=== PATIENT | female | born 1995 | race Caucasian/White ===

== ENCOUNTER 2018-12-06 10:56 | Emergency (ER) | payer MEDICAID ==
[~2018-12-06] VITALS: Ht 154.9 cm; Wt 113.6 kg
[2018-12-06 11:28] VITALS: Ht 154.9 cm; Wt 113.6 kg
[2018-12-06] MEDS ORDERED: SYNTHROID150 MCG PO (11:29)
[2018-12-06 14:33] LABS: APPEARANCE HAZY (CLEAR); BILIRUBIN NEGATIVE (NEGATIVE); COLOR YELLOW (YELLOW); GLUCOSE NEGATIVE (NEGATIVE); KETONE NEGATIVE (NEGATIVE); NITRITE NEGATIVE (NEGATIVE); PROTEIN NEGATIVE (NEGATIVE); UROBILINOGEN NORMAL (NORMAL)
[2018-12-06 14:34] LABS: BACTERIA MODERATE /hpf (NONE SEEN); EPITHELIAL CELLS 0-5 /hpf (0-5); MUCUS <1+ /lpf (NONE SEEN); WHITE CELLS - URINE 0-5 /hpf (0-5)
[2018-12-06] MEDS ORDERED: BUTALB-APAP-CA1 EACH PO (14:44)
[2018-12-06] MEDS ORDERED: ZOFRAN4 MG PO (14:44)
[2018-12-06 15:09] VITALS: BP 136/72
== END 2018-12-06 15:23 | disposition home or self-care (01) ==
LOC: D.ER 10:56
PROVIDERS: Family Medicine
DX: R51 Headache (principal); R11.0 Nausea

== ENCOUNTER 2019-01-07 18:41 | Emergency (ER) | payer MEDICAID ==
[~2019-01-07] VITALS: Ht 154.9 cm; Wt 104.5 kg
[~2019-01-07 18:41] MED LIST: BUTALB-APAP-CA1 EACH PO; SYNTHROID150 MCG PO; ZOFRAN4 MG PO
[2019-01-07 18:46] VITALS: Ht 154.9 cm; Wt 104.5 kg
[2019-01-07 19:10] LABS: BASOPHILS 0.3 % (0-2); EOSINOPHILS 2.7 % (0-7); HEMOGLOBIN 14.7 g/dL (12-16); IMMATURE GRANULOCYTES 0.3 % (0-5); LYMPHOCYTES 27.3 % (15-50); MCH 29.1 pg (26.0-34.0); MCHC 34.2 g/dL (31.0-37.0); MCV 85.1 fL (80.0-100.0); MEAN PLATELET VOLUME 10.4 fL (7.4-10.4); MONOCYTES 5.3 % (2-11); NEUTROPHILS 64.1 % (40-80); PLATELET COUNT 304 10x3/uL (130-400); RBC 5.05 10x6/uL (4.00-5.40); RDW 13.5 % (11.5-14.5); WBC 11.4 10x3/uL (4.8-10.8)
[2019-01-07 19:23] LABS: ALBUMIN 4.1 g/dL (3.4-5.0); ALKALINE PHOSPHATASE 139 U/L (46-116); ALT (SGPT) 103 U/L (10-68); BILIRUBIN - TOTAL 0.35 mg/dL (0.2-1.3); CALC OSMOLALITY 277 mosm/kg (275-300); CALCIUM 9.1 mg/dL (8.5-10.1); CARBON DIOXIDE 29.5 mmol/L (21.0-32.0); CHLORIDE - SERUM 100 mmol/L (98-107); CREATININE - SERUM 0.9 mg/dL (0.6-1.3); GLUCOSE 123 mg/dL (74-106); POTASSIUM - SERUM 3.7 mmol/L (3.5-5.1); PROTEIN - SERUM 8.7 g/dL (6.4-8.2); SODIUM 139 mmol/L (136-145); UREA NITROGEN 10 mg/dL (7-18); eGFR NON AFRICAN AMERICAN 83 mL/min (90-120)
[2019-01-07 19:26] LABS: AMYLASE - SERUM 55 U/L (25-115); LIPASE 163 U/L (73-393)
[2019-01-07 19:28] LABS: TROPONIN-I < 0.017 ng/mL (0.000-0.060)
[2019-01-07 19:31] LABS: HCG SERUM NEGATIVE (NEGATIVE)
[2019-01-07 19:42] LABS: APPEARANCE CLEAR (CLEAR); COLOR YELLOW (YELLOW); NITRITE NEGATIVE (NEGATIVE); PROTEIN NEGATIVE (NEGATIVE)
[2019-01-07 19:43] LABS: BACTERIA MODERATE /hpf (NONE SEEN); BILIRUBIN NEGATIVE (NEGATIVE); EPITHELIAL CELLS 0-5 /hpf (0-5); GLUCOSE NEGATIVE (NEGATIVE); KETONE NEGATIVE (NEGATIVE); RED CELLS - URINE 0-5 /hpf (0-5); UROBILINOGEN NORMAL (NORMAL); WHITE CELLS - URINE OCC /hpf (0-5)
[2019-01-07] MEDS ORDERED: ZOFRAN ODT4 MG/UDTAB PO (20:57)
[2019-01-07 21:20] VITALS: BP 158/94
== END 2019-01-07 21:20 | disposition home or self-care (01) ==
LOC: D.ER 18:41
PROVIDERS: Emergency Medicine
DX: R10.9 Unspecified abdominal pain (principal); K76.0 Fatty (change of) liver, not elsewhere classified; K52.9 Noninfective gastroenteritis and colitis, unspecified